=== PATIENT | female | born 1970 | race American Indian/Alaskan Native ===

== ENCOUNTER 2017-06-07 19:03 | Emergency (ER) | payer SELFPAY ==
--- NOTE | 2017-06-07 21:41 | XRay Report ---
FINAL REPORT PROCEDURE: XR ANKLE 3+V LT TECHNIQUE: Left ankle radiographs, AP, lateral, and oblique views. CPT 64335 HISTORY: Trauma. Pain laterally. COMPARISON: No prior studies are available for comparison. FINDINGS: There is an oblique minimally displaced fracture through the distal fibula. The tibia is intact. Ankle mortise and talar dome appear intact. No other fracture or dislocation is visualized. Soft tissue swelling is seen laterally. IMPRESSION: Minimally displaced oblique fracture distal fibula. No other fractures are seen. Soft tissue swelling is seen overlying the fracture site..
--- NOTE | 2017-06-07 21:59 | Emergency Department Report ---
ED Lower Extremity HPI - General Chief Complaint: Extremity Injury, Lower Stated Complaint: LEFT ANKLE INJURY Time Seen by Provider: 06/07/17 21:18 Source: patient Mode of arrival: Wheelchair Limitations: No Limitations - History of Present Illness Initial Comments: left ankle pain and swelling s/p fall in yard while cutting grass, pt describes pain as 5/10 aching tingling, pt bearing minimal weight bearing, MD Complaint: ankle injury Onset/Timin -: hour(s) Injury: Ankle: Left (left lateral ankle swelling ) Type of Injury: other (twisting injury) Place: home Severity: moderate Severity scale (0 -10): 5 Improves With: nothing Worsens With: weight bearing, movement, palpation Context: fall, other (twisting ) Associated Symptoms: snap/pop sensation, swelling, tingling, able to partially bear weight. denies: numbness - Related Data Previous Rx's Medication Instructions Recorded Last Taken Type Acetaminophen/Codeine [Tylenol 1 tab PO Q6H PRN #30 tab 06/07/17 Unknown Rx /Codeine # 3 tab] Allergies Allergy/AdvReac Type Severity Reaction Status Date / Time No Known Allergies Allergy Unverified 06/07/17 19:48 ED Review of Systems ROS: Stated complaint: LEFT ANKLE INJURY Other details as noted in HPI Constitutional: denies: chills, fever Eyes: denies: eye pain, eye discharge, vision change ENT: denies: ear pain, throat pain Respiratory: denies: cough, shortness of breath, wheezing Cardiovascular: denies: chest pain, palpitations Endocrine: no symptoms reported Gastrointestinal: denies: abdominal pain, nausea, diarrhea Genitourinary: denies: urgency, dysuria, discharge Musculoskeletal: joint swelling, arthralgia, myalgia. denies: back pain Skin: denies: rash, lesions Neurological: denies: headache, weakness, paresthesias Psychiatric: denies: anxiety, depression Hematological/Lymphatic: denies: easy bleeding, easy bruising ED Past Medical Hx - Past Medical History Previous Medical History?: No - Surgical History Additional Surgical History: LYMPH NODE REMOVED - Social History Smoking Status: Never Smoker Substance Use Type: None - Medications Home Medications: Home Medications Medication Instructions Recorded Confirmed Last Taken Type Acetaminophen/Codeine [Tylenol 1 tab PO Q6H PRN #30 tab 06/07/17 Unknown Rx /Codeine # 3 tab] ED Physical Exam - General Limitations: No Limitations General appearance: alert, in no apparent distress - Head Head exam: Present: atraumatic, normocephalic - Eye Eye exam: Present: normal appearance - ENT ENT exam: Present: mucous membranes moist - Neck Neck exam: Present: normal inspection, full ROM. Absent: lymphadenopathy, thyromegaly - Respiratory Respiratory exam: Present: normal lung sounds bilaterally. Absent: respiratory distress - Cardiovascular Cardiovascular Exam: Present: regular rate, normal rhythm. Absent: systolic murmur, diastolic murmur, rubs, gallop - GI/Abdominal GI/Abdominal exam: Present: soft, normal bowel sounds - Rectal Rectal exam: Present: deferred - Expanded Lower Extremity Exam Left Hip exam: Present: normal inspection, full ROM Upper Leg exam: Present: normal inspection, full ROM Knee exam: Present: normal inspection, full ROM Lower Leg exam: Present: normal inspection, full ROM Ankle exam: Present: tenderness, swelling, ecchymosis, erythema. Absent: abrasion, laceration, deformity, crepidus, dislocation, anterior draw sign Neuro vascular tendon exam: Present: no vascular compromise. Absent: pulse deficit, abnormal cap refill, motor deficit, sensory deficit, tendon deficit, extremity cold to touch, pallor, abnormal 2-point discrimination, decreased fine /light touch, foot drop, peroneal nerve deficit, significant pain with passive ROM of distal joint Gait: Positive: observed and limited by pain - Back Exam Back exam: Present: normal inspection. Absent: full ROM, tenderness, CVA tenderness (R), CVA tenderness (L), muscle spasm, paraspinal tenderness, vertebral tenderness, rash noted - Neurological Exam Neurological exam: Present: alert, oriented X3, CN II-XII intact, normal gait, reflexes normal. Absent: motor sensory deficit - Psychiatric Psychiatric exam: Present: normal affect, normal mood - Skin Skin exam: Present: warm, dry, intact ED Course Vital Signs 06/07/17 19:49 Temperature 98.6 F Pulse Rate 98 H Respiratory 14 Rate Blood Pressure 123/85 O2 Sat by Pulse 100 Oximetry ED Lower Extremity MDM - Radiology Data Radiology results: report reviewed left closed minimally displace fibula frracture, - Medical Decision Making pt is a 46 y/o aaf s/p fall while cutting grass complains of left lateral ankle pain and swelling pt endors 05/20 sharp pain exacerbated by weight bearing and palpation , exam: left lateral ecchymosis mild, swelling no deformity, rom restricted by pain ppepb +2 deli associate <3 sec, xray: closed minimally displace fib fracture, plan: lortab, mame splint, crutches follow up with orthopedics on saturday pt verbalized agreement and understanding of same. splint applied per pharmacy intake coordinator splint check : deli associate < 3 sec bilt, spacing two insertion with out difficultly, pt demonstrates safe use of crutches, pt to home via pov and family member, pt with nad at this time. Critical care attestation.: If time is entered above; I have spent that time in minutes in the direct care of this critically ill patient, excluding procedure time. ED Disposition Clinical Impression: Closed traumatic minimally displaced fracture of distal end of fibula Disposition: TO HOME OR SELFCARE Is pt being admited?: No Does the pt Need Aspirin: No Condition: Good Instructions: Ankle Fracture (ED) Additional Instructions: follow up with orthopedic surgery Dr. Briones [phone], [id number] [place] [id number] Prescriptions: Acetaminophen/Codeine [Tylenol /Codeine # 3 tab] 1 tab PO Q6H PRN #30 tab PRN Reason: Pain Referrals: PRIMARY CARE, [Primary Care Provider] - 3-5 Days Time of Disposition: 22:24
[2017-06-07] MEDS ORDERED: NORCO 5/325 PO ONE (22:08)
[2017-06-07 23:03] VITALS: BP 132/85
== END 2017-06-07 23:05 | disposition home or self-care (01) ==
LOC: ED 19:03
DX: S82.832A Other fracture of upper and lower end of left fibula, initial encounter for closed fracture (principal); W18.30XA Fall on same level, unspecified, initial encounter; Y93.9 Activity, unspecified; Y92.9 Unspecified place or not applicable; Y99.9 Unspecified external cause status